=== PATIENT | male | born 1985 | race Caucasian/White ===

== ENCOUNTER 2017-07-26 17:04 | Emergency (ER) | payer OTHER ==
--- NOTE | 2017-07-26 17:22 | ED ---
General Adult HPI - General Chief complaint: Extremity Injury, Upper Stated complaint: right hand injury Time Seen by Provider: 07/26/17 17:16 Source: patient, RN notes reviewed Mode of arrival: ambulatory Limitations: no limitations - History of Present Illness Initial comments: Patient's a 31-year-old male who presents emergency room today with a chief complaint of injury to the right hand that occurred yesterday while working on a car. He states a bolt snapped in his hand on the frame. He states that increased pain swelling to the right hand. He states worse over the urgent, fourth, fifth metacarpals. Patient denies any other injury or complaint. He does admit that the pain is worse with any movements. Patient denies any recent fever, chills, shortness of breath, chest pain, back pain, abdominal pain, nausea or vomiting, numbness or tingling, headaches or visual changes, or any other complaints. - Related Data Previous Rx's Medication Instructions Recorded Ibuprofen [Motrin] 600 mg PO Q6HR PRN #40 day 07/26/17 Allergies Allergy/AdvReac Type Severity Reaction Status Date / Time bee venom protein (honey bee) Allergy Verified 07/26/17 17:18 Review of Systems ROS Statement: Those systems with pertinent positive or pertinent negative responses have been documented in the HPI. ROS Other: All systems not noted in ROS Statement are negative. Past Medical History Past Medical History: No Reported History History of Any Multi-Drug Resistant Organisms: None Reported Past Surgical History: No Surgical Hx Reported Past Psychological History: No Psychological Hx Reported Smoking Status: Current every day smoker Past Alcohol Use History: Occasional Past Drug Use History: Marijuana General Exam - General Exam Comments Initial Comments: General: The patient is awake and alert, in no distress, and does not appear acutely ill. Neck: The neck is supple, there is no tenderness or JVD. Musculoskeletal: Patient does have some moderate swelling to the back of the right hand. He is locally tender over the third, fourth, fifth metacarpals. He shows limited range of motion due to pain and swelling. No tenderness to the digits. No tenderness at the right wrist. Sensations are intact. Pulses are equal bilaterally 2+. Neurological: A&O x 3. CN II-XII intact, There are no obvious motor or sensory deficits. Coordination appears grossly intact. Speech is normal. Skin: Skin is warm and dry and no rashes or lesions are noted. Psychiatric: Normal mood and affect. Limitations: no limitations Course Vital Signs 07/26/17 17:10 Temperature 98.0 F Pulse Rate 108 H Respiratory 20 Rate Blood Pressure 150/84 O2 Sat by Pulse 100 Oximetry Medical Decision Making - Medical Decision Making Patient's x-rays reviewed and does show fracture of the right hamate bone. Patient has been splinted in a short arm volar OCL splint. Neurovascular rechecked and intact. Patient was following up with the orthopedic in the next 2 days. Disposition Clinical Impression: Closed hamate fracture Disposition: HOME SELF-CARE Condition: Good Instructions: Hand Fracture (ED) Additional Instructions: Please follow up with the orthopedic doctor the next 2 days. Please leave splint in place until follow-up appointment. Please continue to ice elevate the affected area and use ibuprofen for pain. Please return to emergency room for any other concerns. Prescriptions: Ibuprofen [Motrin] 600 mg PO Q6HR PRN #40 day PRN Reason: Pain Referrals: None,Stated [Primary Care Provider] - 1-2 days Gaston Dinh MD [STAFF PHYSICIAN] - 1-2 days Time of Disposition: 18:07
--- NOTE | 2017-07-26 17:43 | XR ---
EXAMINATION TYPE: XR hand complete RT DATE OF EXAM: 07/26/2017 CLINICAL HISTORY: Smashing injury today with pain. TECHNIQUE: Frontal, lateral and oblique images of the right hand are obtained. COMPARISON: None. FINDINGS: Seen best on oblique image there is small avulsion type fracture measuring 5 mm with associ ated mild soft tissue swelling could be from dorsal base of fifth metatarsal or from hamate bone. The joint spaces in the right hand appear within normal limits. IMPRESSION: There is acute 5 mm avulsion type fracture from dorsal surface of the hamate bone or bas e of fifth metatarsal. (Initial encounter closed type posttraumatic fracture)
[2017-07-26 18:28] VITALS: BP 131/88; PULSE 95; RESP 16; TEMP 98.6
== END 2017-07-26 18:28 | disposition home or self-care (01) ==
LOC: EC 17:04
DX: S62.141A Displaced fracture of body of hamate [unciform] bone, right wrist, initial encounter for closed fracture (principal); F17.200 Nicotine dependence, unspecified, uncomplicated; Z91.030 Bee allergy status; W22.8XXA Striking against or struck by other objects, initial encounter; Y92.009 Unspecified place in unspecified non-institutional (private) residence as the place of occurrence of the external cause
CPT/HCPCS: 29125; 99283

== ENCOUNTER 2017-11-25 17:40 | Emergency (ER) | payer OTHER ==
[2017-11-25 17:56] VITALS: PULSE 81; RESP 16
--- NOTE | 2017-11-25 18:59 | ED ---
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 Patient states this positive been there for the last week. Patient states that he developed some after doing some weed whacking for his mother. States that he is unsure if there was any poison lionel present. Patient states that the lesion started as blisters and then turned into scabbed lesions after he itches them. Patient states that the lesions are very itchy. He denies any drainage from the areas. States he was recently released from [facility] as well. Denies any lesions to his fingers or between his fingers. Denies any fevers or chills. Denies any other contact with new substances including lotions, creams, detergents, foods, or medications. Denies any throat swelling or tightness. Denies any difficulty breathing. Patient denies any recent shortness breath, chest pain, abdominal pain, nausea, vomiting, diarrhea, constipation, back pain, numbness, tingling, dizziness, weakness, hematuria, dysuria, urinary urgency, urinary frequency, headache, visual changes, or any other complaints. - Related Data Home Medications Medication Instructions Recorded Confirmed Acetaminophen Tab [Tylenol Tab] 1,000 mg PO Q6HR 11/25/17 11/25/17 Previous Rx's Medication Instructions Recorded predniSONE 50 mg PO DAILY #3 tablet 11/25/17 Allergies Allergy/AdvReac Type Severity Reaction Status Date / Time bee venom protein (honey bee) Allergy Swelling Verified 11/25/17 18:34 Review of Systems ROS Statement: Those systems with pertinent positive or pertinent negative responses have been documented in the HPI. ROS Other: All systems not noted in ROS Statement are negative. Past Medical History Past Medical History: No Reported History History of Any Multi-Drug Resistant Organisms: None Reported Past Surgical History: No Surgical Hx Reported Past Psychological History: No Psychological Hx Reported Smoking Status: Current every day smoker Past Alcohol Use History: Occasional Past Drug Use History: Marijuana General Exam Limitations: no limitations General appearance: alert, in no apparent distress, other (This is a well- developed, well nourished adult male patient in no acute distress. Vital signs upon presentation are temperature 98.2F, pulse 81, respirations 16, blood pressure 137/78, pulse ox 99% on room air.) Eye exam: Present: normal appearance, PERRL, EOMI. Absent: scleral icterus, conjunctival injection, periorbital swelling ENT exam: Present: normal exam, normal oropharynx, mucous membranes moist Respiratory exam: Present: normal lung sounds bilaterally. Absent: respiratory distress, wheezes, rales, rhonchi, stridor Cardiovascular Exam: Present: regular rate, normal rhythm, normal heart sounds. Absent: systolic murmur, diastolic murmur, rubs, gallop, clicks Neurological exam: Present: alert, oriented X3, CN II-XII intact Psychiatric exam: Present: normal affect, normal mood Skin exam: Present: warm, dry, intact, normal color, rash (There are scattered scabbed lesions over the forearms, chest, and abdomen. Lesions are non- petechial, nonvesicular, non-mucosal.) Course Vital Signs 11/25/17 11/25/17 17:54 19:09 Temperature 98.2 F 98.6 F Pulse Rate 81 81 Respiratory 16 16 Rate Blood Pressure 137/78 132/68 O2 Sat by Pulse 99 98 Oximetry Medical Decision Making - Medical Decision Making 32-year-old male patient presented to the emergency department today for evaluation of rash scattered over his forearms, chest, and abdomen. No surrounding erythema or evidence of secondary infection. Patient states that he was doing some weed whacking prior to the lesions starting. Was unsure poison lionel was present. Lesions do sound like contact dermatitis. Patient will be treated with steroids at this time. He is instructed to follow-up with the primary care physician, he was given Dr. Calixto as a referral. Return parameters discussed in detail. He verbalizes understanding and agrees with this plan. Disposition Clinical Impression: Contact dermatitis Disposition: HOME SELF-CARE Condition: Good Instructions: Contact Dermatitis (ED) Additional Instructions: Keep areas clean and dry. Complete medication and full. Follow-up with her primary care physician for recheck in 1-2 days. Return immediately for any new , worsening, or concerning symptoms. Prescriptions: predniSONE 50 mg PO DAILY #3 tablet Is patient prescribed a controlled substance at d/c from ED?: No Referrals: Alisha Calixto MD [STAFF PHYSICIAN] - 1-2 days Time of Disposition: 18:58
[2017-11-25 19:09] VITALS: BP 132/68; TEMP 98.6
== END 2017-11-25 19:09 | disposition home or self-care (01) ==
LOC: EC 17:40
DX: L25.9 Unspecified contact dermatitis, unspecified cause (principal); F17.200 Nicotine dependence, unspecified, uncomplicated; Z79.899 Other long term (current) drug therapy; Z91.030 Bee allergy status
CPT/HCPCS: 99282